=== PATIENT | female | born 1955 | race African-American/Black ===

== ENCOUNTER 2017-02-10 11:05 | Emergency (ER) | payer MEDICARE, OTHER ==
[~2017-02-10] VITALS: Ht 162.6 cm; Wt 79.4 kg
[~2017-02-10 11:05] MED LIST: ATENOLOL25 MG ORAL; AVAPRO300 MG ORAL; CLINDAMYCIN HC300 MG ORAL; HYDROCHLOROTHIA25 MG ORAL
[2017-02-10] MEDS ORDERED: IBUPROFEN800 MG ORAL (12:52)
[2017-02-10 13:00] VITALS: BP 156/82
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
== END 2017-02-10 13:00 | disposition home or self-care (01) ==
LOC: EMR 12:30
DX: S16.1XXA Strain of muscle, fascia and tendon at neck level, initial encounter (principal); M25.551 Pain in right hip; Z88.6 Allergy status to analgesic agent; Z91.041 Radiographic dye allergy status; Z88.8 Allergy status to other drugs, medicaments and biological substances; I10 Essential (primary) hypertension; Z90.49 Acquired absence of other specified parts of digestive tract; V43.52XA Car driver injured in collision with other type car in traffic accident, initial encounter; Y93.9 Activity, unspecified; Y92.410 Unspecified street and highway as the place of occurrence of the external cause
CPT/HCPCS: 72040; 99284

== ENCOUNTER 2019-07-06 17:57 | Emergency (ER) | payer BC, OTHER ==
[~2019-07-06] VITALS: Ht 162.6 cm; Wt 79.4 kg
[~2019-07-06 17:57] MED LIST changes: +IBUPROFEN800 MG ORAL
[2019-07-06 18:01] VITALS: BP 176/93
--- NOTE | 2019-07-06 18:01 | NUR ---
ED Nurse Note: PT AMBULATED TO ED STATED SHE WAS AT URGENT CARE AND THEY SAID SHE HAS STREP THROAT. PT WAS GIVEN AZITHORMYCIN AND SAID IT HASNT HELPED
--- NOTE | 2019-07-06 18:36 | Emergency Room Report ---
History of Present Illness General Chief Complaint: Sore Throat Source: Patient Present Illness HPI 63-year-old female with no significant past medical history here complaining of left ear pain as well as throat pain x2 days. Patient reports that she went to an urgent care 2 days ago, throat culture was done however tested negative for strep, patient was given prednisone, ibuprofen, and azithromycin however has not started taking azithromycin until earlier today. Complains of a 10 out of 10 left-sided throat and ear pain. Denies any recent travel, fever and chills, cough and congestion, abdominal pain, nausea vomiting. Denies chest pain, shortness of breath, palpitation, headache and dizziness. Allergies: Coded Allergies: ACETAMINOPHEN (Verified Allergy, Unknown, 04/03/16) AMOXICILLIN (Verified Allergy, Unknown, 04/03/16) ASPIRIN (Verified Allergy, Unknown, PALPITATION, 04/03/16) CODEINE (Verified Allergy, Unknown, 04/03/16) HYDROCODONE (Verified Allergy, Unknown, 04/03/16) IODINE (Verified Allergy, Unknown, 04/03/16) LIDOCAINE (Verified Allergy, Unknown, SWELLING, 04/03/16) OXYCODONE (Verified Allergy, Unknown, 04/03/16) TETRACYCLINE (Verified Allergy, Unknown, 04/03/16) Patient History Past Medical History: see triage record Past Surgical History: none Pertinent Family History: none Now: No Immunizations: UTD Reviewed Nursing Documentation: PMH: Agreed; PSxH: Agreed Nursing Documentation-PMH Past Medical History: No History, Except For Hx Hypertension: Yes Hx Diabetes: No Hx Gastrointestinal Problems: No - Lap Cholecystectomy in 1994, Lt chest lipoma resection in 1994 Review of Systems All Other Systems: negative except mentioned in HPI Physical Exam Vital Signs Date Time Temp Pulse Resp B/P (MAP) Pulse Ox O2 Delivery O2 Flow Rate FiO2 07/06/19 18:01 98.4 85 16 176/93 (120) 97 Room Air Sp02 EP Interpretation: reviewed, normal General Appearance: no apparent distress, alert, GCS 15, non-toxic Head: normocephalic, atraumatic Eyes: bilateral eye normal inspection, bilateral eye PERRL ENT: tonsillar swelling, pharyngeal erythema, other - Left TM bulging Neck: full range of motion, supple, no meningismus, no bony tend Respiratory: chest non-tender, lungs clear, normal breath sounds, no rhonchi, no retraction, no wheezing, speaking full sentences Cardiovascular #1: regular rate, rhythm, no edema, no murmur, normal capillary refill Gastrointestinal: normal bowel sounds, non tender, soft, non-distended, no guarding, no rebound Genitourinary: no CVA tenderness Musculoskeletal: back normal Neurologic: alert, motor strength/tone normal, oriented x3, sensory intact, responsive, speech normal Psychiatric: judgement/insight normal, memory normal, mood/affect normal, no suicidal/homicidal ideation Skin: no rash Lymphatic: no adenopathy Medical Decision Making PA Attestation All my diagnosis and treatment plans were reviewed ad discussed with my supervising physician Dr. Curtis Diagnostic Impression: Primary Impression: Otitis media Additional Impression: Pharyngitis ER Course 63-year-old female with no significant past medical history here complaining of left ear pain as well as throat pain x2 days. Patient reports that she went to an urgent care 2 days ago, throat culture was done however tested negative for strep, patient was given prednisone, ibuprofen, and azithromycin however has not started taking azithromycin until earlier today. Complains of a 10 out of 10 left-sided throat and ear pain. Denies any recent travel, fever and chills, cough and congestion, abdominal pain, nausea vomiting. Denies chest pain, shortness of breath, palpitation, headache and dizziness. Ddx considered but are not limited to: strep pharyngitis, URI, tonsillitis, peritonsillar abscess, influneza, otitis media, otitis externa Vital signs: are WNL, pt. is afebrile H&PE are most consistent with: Left-sided otitis media, pharyngitis ORDERS: Cefdinir, ibuprofen, lidocaine viscous ED INTERVENTIONS: None required at this time. DISCHARGE: At this time pt. is stable for d/c to home. Will provide printed patient care instructions, and any necessary prescriptions. Care plan and follow up instructions have been discussed with the patient prior to discharge. Patient to continue taking prednisone, however discontinue azithromycin, follow-up with ENT and primary doctor, take medication as directed, if worsening symptoms return to the emergency room Last Vital Signs Date Time Temp Pulse Resp B/P (MAP) Pulse Ox O2 Delivery O2 Flow Rate FiO2 07/06/19 18:01 98.4 85 16 176/93 (120) 97 Room Air Disposition: HOME, SELF-CARE Condition: Stable Scripts Lidocaine HCl 2% Viscous (Lidocaine HCl 2% Viscous) 100 Ml Solution 15 ML ORAL QID, #100 ML Prov: Teresa Guevara 07/06/19 Ibuprofen (Ibu) 800 Mg Tablet 800 MG PO TID, #30 TAB Prov: Teresa Guevara 07/06/19 Cefdinir (CEFDINIR) 300 Mg Capsule 300 MG PO BID for 10 Days, #20 CAP Prov: Teresa Guevara 07/06/19 Patient Instructions: Otitis Media, Adult, [id number], Pharyngitis, Easy-to- Read Additional Instructions: Take medication as directed, follow-up with your primary care provider, increase oral hydration, need to be sent to ear nose throat doctor, if worsening symptoms return to the emergency room Teresa Guevara Jul 06, 2019 18:36
[2019-07-06] MEDS ORDERED: CEFDINIR300 MG PO (18:37)
[2019-07-06] MEDS ORDERED: IBU800 MG PO (18:37)
[2019-07-06] MEDS ORDERED: LIDOCAINE VISC100 ML ORAL (18:37)
[2019-07-06 18:50] VITALS: BP 176/93
--- NOTE | 2019-07-06 18:50 | NUR ---
ER DISCHARGE NOTE: Patient is cleared to be discharged per ERMD, pt is aox4, on room air, with stable vital signs. pt was given dc and prescription instructions, pt was able to verbalize understanding, pt id band . pt is able to ambulate with steady gait. pt took all belongings.
== END 2019-07-06 18:50 | disposition home or self-care (01) ==
LOC: EMR 18:15
DX: J02.9 Acute pharyngitis, unspecified (principal); H66.92 Otitis media, unspecified, left ear; Z88.6 Allergy status to analgesic agent; Z88.0 Allergy status to penicillin; I10 Essential (primary) hypertension; Z90.49 Acquired absence of other specified parts of digestive tract
CPT/HCPCS: 99282